=== PATIENT | male | born 2000 | race Caucasian/White ===

== ENCOUNTER 2023-05-27 14:00 | Emergency (ER) | payer OTHER ==
[~2023-05-27] VITALS: Ht 180.3 cm; Wt 85.7 kg
[2023-05-27 14:17] VITALS: BP 121/77; PULSE 73; RESP 20; TEMP 99.1; O2SAT 100
[2023-05-27] MEDS ORDERED: IBUP-2809 PO (16:03)
[2023-05-27 16:40] VITALS: BP 120/77; PULSE 75; RESP 20; TEMP 98; O2SAT 100
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
== END 2023-05-27 16:40 | disposition home or self-care (01) ==
LOC: MED 14:00
DX: S63.591A Other specified sprain of right wrist, initial encounter (principal); S09.90XA Unspecified injury of head, initial encounter; V49.88XA Car occupant (driver) (passenger) injured in other specified transport accidents, initial encounter; Y93.89 Activity, other specified; Y92.89 Other specified places as the place of occurrence of the external cause; Y99.8 Other external cause status
CPT/HCPCS: 70450; 73100; 99284